=== PATIENT | female | born 1970 | race Caucasian/White ===

== ENCOUNTER → 2022-05-29 08:54 | Outpatient (BNVA) | payer OTHER, SELFPAY | PROVIDERS: Visit Provider Nurse Practitioner Family | DX: J02.9 Acute pharyngitis, unspecified (principal) | CPT/HCPCS: 87880 ==

== ENCOUNTER → 2022-06-08 17:02 | Outpatient (BNVA) | payer OTHER, SELFPAY | PROVIDERS: Visit Provider Registered Nurse Neonatal Intensive Care | DX: U07.1 COVID-19 (principal); R50.9 Fever, unspecified | CPT/HCPCS: 87400; 87426 ==